=== PATIENT | female | born 1990 | race African-American/Black ===

== ENCOUNTER 2016-06-05 17:42 | Emergency (ER) | payer SELFPAY ==
[~2016-06-05] VITALS: Ht 160 cm; Wt 108.9 kg
[2016-06-05 19:38] VITALS: BP 130/82
[2016-06-05] MEDS ORDERED: KETOROLAC TROMETH 60MG/2ML VIAL IM ONE (20:15)
== END 2016-06-05 22:27 | disposition home or self-care (01) ==
LOC: ER 17:47
DX: M54.9 Dorsalgia, unspecified (principal); F17.210 Nicotine dependence, cigarettes, uncomplicated; E66.01 Morbid (severe) obesity due to excess calories; Z68.41 Body mass index [BMI] 40.0-44.9, adult; V43.52XA Car driver injured in collision with other type car in traffic accident, initial encounter; Y93.89 Activity, other specified; Y99.8 Other external cause status; Y92.89 Other specified places as the place of occurrence of the external cause
CPT/HCPCS: 70450; 72070; 72125; 96372; 99284; J1885

== ENCOUNTER 2020-04-16 01:37 | Emergency (ER) | payer SELFPAY ==
[~2020-04-16] VITALS: Ht 162.6 cm; Wt 110.2 kg
[2020-04-16] MEDS ORDERED: SODIUM CHLORIDE 0.9% 1,000 ML IVB ONE (02:00)
[2020-04-16 02:02] LABS: Basophils # (auto) 0.1 10 ^3/uL (0-0.2); Basophils % (auto) 0.8 % (0.0-2.0); Eosinophils # (auto) 0.2 10 ^3/uL (0-0.8); Eosinophils % (auto) 1.8 % (0.0-7.0); Hematocrit 40.6 % (36.0-46.0); Hemoglobin 13.9 g/dL (12.2-16.2); Lymphocytes # (auto) 3.4 10 ^3/uL (0.4-5.4); Lymphocytes % (auto) 39.8 % (10.0-50.0); Mean Corpuscular Hemoglobin 29.6 pg (28.0-32.0); Mean Corpuscular Hgb Conc. 34.2 g/dL (32.0-36.0); Mean Corpuscular Volume 86.5 fL (80.0-100.0); Monocytes # (auto) 0.5 10 ^3/uL (0-1.3); Monocytes % (auto) 5.9 % (0.0-12.0); Neutrophils # (auto) 4.4 10 ^3/uL (1.6-8.6); Neutrophils % (auto) 51.7 % (37.0-80.0); Nucleated Red Blood Cells % 0.1 %; Platelet Count (auto) 312 10^3/uL (140-450); Red Cell Distribution Width 14.3 % (11.8-14.3); White Blood Cell 8.5 10^3/uL (4.4-10.8)
[2020-04-16 02:16] LABS: Alanine Aminotransferase 20 U/L (13-56); Albumin 3.8 g/dL (3.4-5.0); Anion Gap 7 (5-15); Aspartate Aminotransferase 16 U/L (15-37); BUN/Creatinine Ratio 15.5; Blood Urea Nitrogen 16 mg/dL (7-18); Calcium 8.8 mg/dL (8.5-10.1); Carbon Dioxide 24 mmol/L (21-32); Chloride 104 mmol/L (98-107); GFR African American 82 mL/min; GFR Non-African American 68 mL/min; Glucose 82 mg/dL (74-106); Magnesium 2.3 mg/dL (1.6-2.6); Potassium 4.1 mmol/L (3.5-5.1); Sodium 135 mmol/L (136-145)
[2020-04-16 02:17] LABS: INR 0.94 (0.9-1.15); Partial Thromboplastin Time 30.5 sec (23.0-31.2)
[2020-04-16 02:21] LABS: Alkaline Phosphatase 79 U/L (45-117); Bilirubin, Total 0.2 mg/dL (0.2-1.0)
[2020-04-16 02:34] LABS: Blood Alcohol < 3.0 mg/dL (0-5)
[2020-04-16 02:46] LABS: Urine Bacteria FEW /hpf (None Seen); Urine Blood Negative /uL (Negative); Urine WBC 5 /hpf (0 - 5)
[2020-04-16 03:01] LABS: Amphetamine Screen, Urine NEGATIVE (NEGATIVE); Barbiturate Scree,Urine NEGATIVE (NEGATIVE); Benzodiazephine Screen, Urine NEGATIVE (NEGATIVE); Cannabinoid Screen, Urine POSITIVE (NEGATIVE); Cocaine Screen, Urine NEGATIVE (NEGATIVE); Opiate Scree,Urine NEGATIVE (NEGATIVE); Phencyclidine Screen, Urine NEGATIVE (NEGATIVE)
[2020-04-16 03:05] LABS: Alcohol, Urine < 3.0 mg/dL (0-10)
[2020-04-16 04:15] VITALS: BP 97/62
== END 2020-04-16 04:38 | disposition home or self-care (01) ==
LOC: ER 01:39
DX: R55 Syncope and collapse (principal); R07.89 Other chest pain
CPT/HCPCS: 36415; 70450; 71045; 80053; 80307; 80320; 81001; 83735; 83880; 84484; 85025; 85610; 85730; 87086; 93005; 96360; 99285; J7030

== ENCOUNTER 2020-06-28 00:31 | Emergency (ER) | payer SELFPAY ==
[~2020-06-28] VITALS: Ht 162.6 cm; Wt 108.9 kg
[2020-06-28 04:30] VITALS: BP 121/82
== END 2020-06-28 05:24 | disposition home or self-care (01) ==
LOC: ER 00:31
DX: R09.82 Postnasal drip (principal); J45.909 Unspecified asthma, uncomplicated; F17.210 Nicotine dependence, cigarettes, uncomplicated

== ENCOUNTER 2020-12-06 11:18 | Emergency (ER) | payer MEDICAID, OTHER ==
[~2020-12-06] VITALS: Ht 162.6 cm; Wt 99.8 kg
[2020-12-06 12:19] VITALS: BP 120/65
[2020-12-06] MEDS ORDERED: methylPREDNISolone SOD SUCC 125 MG/2 ML VL IM ONE (12:45)
[2020-12-06] MEDS ORDERED: cefTRIAXone SOD 1,000 MG VL IM ONE (12:45)
== END 2020-12-06 13:30 | disposition home or self-care (01) ==
LOC: ER 11:18
DX: J03.90 Acute tonsillitis, unspecified (principal); J20.9 Acute bronchitis, unspecified; J45.909 Unspecified asthma, uncomplicated; F17.210 Nicotine dependence, cigarettes, uncomplicated
CPT/HCPCS: 96372; 99284; J0696; J2930